=== PATIENT | male | born 1960 | race Caucasian/White ===

== ENCOUNTER 2017-12-11 15:15 | Emergency (ER) | payer MEDICARE ==
[~2017-12-11] VITALS: Ht 193 cm; Wt 76.2 kg
[~2017-12-11 15:15] MED LIST: AUGMENTIN 875 M1 TAB PO; DARVOCET N 1001 TAB PO; DAYPRO600 M1 PO
[2017-12-11] MEDS ORDERED: CEFADROXIL500 M1 PO (15:37)
[2017-12-11] MEDS ORDERED: NORCO 5-325 TA1 EACH PO (16:27)
== END 2017-12-11 16:45 | disposition home or self-care (01) ==
LOC: ED 15:15
DX: L03.115 Cellulitis of right lower limb (principal); F17.200 Nicotine dependence, unspecified, uncomplicated; Z88.1 Allergy status to other antibiotic agents; Z79.899 Other long term (current) drug therapy; Z88.8 Allergy status to other drugs, medicaments and biological substances

== ENCOUNTER 2019-01-22 19:33 | Emergency (ER) | payer MEDICARE ==
[~2019-01-22] VITALS: Ht 193 cm; Wt 65.8 kg
[~2019-01-22 19:33] MED LIST changes: +CEFADROXIL500 M1 PO; +NORCO 5-325 TA1 EACH PO
== END 2019-01-22 22:20 | disposition home or self-care (01) ==
LOC: ED 19:33
DX: S46.811A Strain of other muscles, fascia and tendons at shoulder and upper arm level, right arm, initial encounter (principal); M25.521 Pain in right elbow; Z88.1 Allergy status to other antibiotic agents; Z91.040 Latex allergy status; X58.XXXA Exposure to other specified factors, initial encounter; Y93.89 Activity, other specified; Y92.89 Other specified places as the place of occurrence of the external cause; Y99.8 Other external cause status